=== PATIENT | male | born 1980 | race Caucasian/White ===

== ENCOUNTER 2021-04-06 17:31 | Observation (INO) ==
--- NOTE | 2021-04-06 17:59 | DR.ABDMALE ---
HPI Time seen Time Seen by Provider: 04/06/21 17:59 PCP Primary Care Physician: HAILEE HPI comment HPI Comment: PATIENT IS 40YR OLD MALE IN ER WITH WITH ABDOMINA PAIN AND CHEST PAIN SINCE LAST NIGHT. PAIN ASSOCIATED WITH NAUSEA AND VOMITING AND CHILLS. UR INE IS CONCENTRATED. NO DYSURIA OR DIARRHEA. CHEST PAIN IS IN PRECAUDIAL AREA. HAD PREVIOUS [place]. HAVE FELT SIMILAR PAIN WITH GALL BLADDEER ATTACK. NO COUGH OR CONGESTION. Complaint Chief Complaint Doctors Comments: ABDOMINAL PAIN, CHEST PAIN SINCE LAST NIGHT. Chief Complaint:: PATIENT C/O ABD PAIN, CHEST PAIN, COLD CHILLS, NAUSEA, VOMITTING, AND DARK URINE. PATIENT STATES ALL OF HIS SYMPTOMS STARTED LAST NIGHT AROUND 2330. COVID-19 Coronavirus risk:travel/contact w/high risk person: No Has patient experienced Coronavirus symptoms: Yes Coronavirus symptoms experienced: Fever Reviewed Nurses Notes Review: Yes Mode of arrival Mode of Arrival: Ambulatory Timing Onset of Chief Complaint: 04/05/21 Came on: Suddenly Duration Duration: Constant Duration: Hours Location Location: RUQ, LUQ and Epigastric Severity Severity: Moderate Quality Quality: Sharp Context Onset: Suddenly and At Rest History of: Similar pain (dx) Modifying factors Worsening Factors: Exertion Improving Factors: Lying Still Associated signs and symptoms Associated Signs and Symptoms: Nausea and Vomiting PMH PMH Past Medical History: Yes Past Medical History: [place] Past Surgical History: Yes Surgical History: Ortho Surgery Family History History of Family Medical Conditions: Yes Family Medical History: Diabetes Mellitus, Cancer, [place], Coronary Artery Disease, Heart Failure and Hypertension Social History Does patient currently use any type of tobacco product: Yes Have you used tobacco products in the last 12 months: Yes Type of Tobacco Use: Cigarettes Does any household member use tobacco: Yes Alcohol Use: Rarely Do you use any recreational Drugs:: No Lives With: Family Lives Where: Home Travel Risk Coronavirus risk:travel/contact w/high risk person: No Has patient experienced Coronavirus symptoms: Yes Coronavirus symptoms experienced: Fever Infectious screening In the last 2 months have you had wt loss of >10#?: NO Have you had fever, night sweats or hemotysis?: No Have you traveled outside the country in the last 6 months?: No Isolation: Standard ROS Review of Systems Constitutional: See HPI, Weakness and Fatigue; negative Fever Eyes: No Symptoms Reported and See HPI ENTM: No Symptoms Reported and See HPI; negative Nose Discharge and Loose Teeth Respiratoy: No Symptoms Reported and See HPI; negative Moist Cough, Short of Breath and Wheezing Cardiovascular: No Symptoms Reported, See HPI and Chest Pain; negative Edema, Palpitations and Syncope Gastrointestinal/Abdominal: See HPI, Abdominal Pain, Nausea and Vomiting; negative Diarrhea Genitourinary: No Symptoms Reported and See HPI; negative Dysuria, Frequency and Hematuria Neurological: See HPI and Weakness; negative Headache and Dizziness Musculoskeletal: No Symptoms Reported and See HPI; negative Back Pain and Muscle Pain Integumentary: No Symptoms Reported and See HPI; negative Rash and Juandice Hematologic/Lymphatic: No Symptoms Reported and See HPI; negative Easy Bruising Endocrine: No Symptoms Reported and See HPI; negative Increased Thirst and Increased Urine Psychiatric: No Symptoms Reported and See HPI All Other Systems: Reviewed and Negative PE Vital Signs Vital Signs: Temp Pulse Resp BP BP Pulse Ox 04/06/21 17:32 98.4 F 92 H 20 118/74 97 01/14/21 21:50 126/72 General Limitations: No Limitations General Appearance: Alert and In No Apparent Distress Head Head Exam: Normal Inspection Eyes Eye exam: Normal Appearance; negative Scleral Icterus and Conjunctival Injection ENT ENT Exam: Normal Exam, Normal Oropharynx, Normal External Ear Exam and TM's Normal Bilaterally Neck Neck Exam: Normal Inspection and Trachea Midline; negative Tenderness Chest Chest Inspection: Normal Inspection and Symmetric Chest Wall Rise; negative Ten derness Respiratory Respiratory Exam: Normal Lung Sounds Bilat; negative Accessory Muscle Use, Chest Wall Tenderness and Respiratory Distress Respiratory Exam: Bilateral: Clear to Auscultation Cardiovascular Cardiovascular Exam: Regular Rate, Normal Rhythm and Normal Heart Sounds; negative Systolic Murmur and Diastolic Murmur Abdominal Exam Abdominal Exam: Normal Bowel Sounds, Soft and Tenderness Abdominal Tenderness: RUQ, LUQ, Epigastrium and Moderate Rectal Rectal Exam: Deferred Back Back Exam: Normal Inspection; negative (R) CVA Tenderness and (L) CVA Tenderness Extremeties Extremities Exam: Normal Inspection and Normal Capillary Refill; negative Tenderness Exam: Male: Deferred Neurologic Neurological Exam: Alert, Oriented X3 and CN II-XII Intact; negative Motor Sensory Deficit Psychiatric Psychiatric Exam: Normal Affect and Normal Mood Skin Skin Exam: Warm, Dry, Intact and Normal Color MDM Additional Information Obtained From Additional information provided by: Old Records (SENT FOR CT ABD AND PELVIS FROM [facility]) Differential Diagnosis Differential Diagnosis: Cholcystitis and Cholelethiasis Other differential diagnosis: CHEST PAIN. COURSE Treatment Treatment: SEE ORDERS. Consultation Consultation Comments: DISCUSSED PATIENT WITH DR. DUMONT. HE WILL ADMIT PATIENT. Education/Counseling Education/Counseling: Patient Educated On: Diagnosis ROR Labs Reviewed Laboratory Results Reviewed?: Yes Result Diagrams: 04/06/21 18:20 04/06/21 18:20 Laboratory: WBC 11.6 X10^3/uL (3.6-10.0) H 04/06/21 18:20 RBC 4.46 X10^6/uL (4.7-6.0) L 04/06/21 18:20 Hgb 14.6 g/dL (13.5-18.0) 04/06/21 18:20 Hct 41.9 % (42.0-54.0) L 04/06/21 18:20 MCV 94.0 fL (80.0-100.0) 04/06/21 18:20 MCH 32.8 pg (27.0-34.0) 04/06/21 18:20 MCHC 34.9 g/dL (33.0-35.0) 04/06/21 18:20 RDW 13.0 % (11.6-16.5) 04/06/21 18:20 Plt Count 283 X10^3/uL (150.0-450.0) 04/06/21 18:20 MPV 7.8 fL (7.4-11.0) 04/06/21 18:20 Neut % (Auto) 57.3 % (42.0-75.0) 04/06/21 18:20 Lymph % (Auto) 27.8 % (21.0-51.0) 04/06/21 18:20 Door % (Auto) 11.8 % (0.0-13.0) 04/06/21 18:20 Eos % (Auto) 2.5 % (0.9-2.9) 04/06/21 18:20 Baso % (Auto) 0.6 % (0.2-1.0) 04/06/21 18:20 Neut # (Auto) 6.7 x10^3/uL (2.2-4.8) H 04/06/21 18:20 Lymph # (Auto) 3.2 X10^3/uL (1.3-2.9) H 04/06/21 18:20 Door # (Auto) 1.4 x10^3/uL (0.3-0.8) H 04/06/21 18:20 Eos # (Auto) 0.3 x10^3/uL (0.0-0.2) H 04/06/21 18:20 Baso # (Auto) 0.1 X10^3/uL (0.0-0.1) 04/06/21 18:20 Absolute Nucleated RBC 0.2 /100WBC 04/06/21 18:20 Sodium 140 mmol/L (136-145) 04/06/21 18:20 Corrected Sodium TNP 04/06/21 18:20 Potassium 4.0 mmol/L (3.5-5.1) 04/06/21 18:20 Chloride 104 mmol/L (98-107) 04/06/21 18:20 Carbon Dioxide 28.9 mmol/L (21-32) 04/06/21 18:20 BUN 9 mg/dL (7-18) 04/06/21 18:20 Creatinine 0.72 mg/dL (0.70-1.30) 04/06/21 18:20 Est GFR (MDRD) Af Amer > 60 (>60) 04/06/21 18:20 Est GFR (MDRD) Non-Af > 60 (>60) 04/06/21 18:20 Glucose 110 mg/dL (65-99) H 04/06/21 18:20 Calcium 8.7 mg/dL (8.5-10.1) 04/06/21 18:20 Corrected Calcium TNP 04/06/21 18:20 Total Bilirubin 0.30 mg/dL (0.2-1.0) 04/06/21 18:20 AST 10 Units/L (15-37) L 04/06/21 18:20 ALT 23 Units/L (12-78) 04/06/21 18:20 Alkaline Phosphatase 85 Units/L (46-116) 04/06/21 18:20 Creatine Kinase 90 Units/L (39-308) 04/06/21 18:20 CK-MB (CK-2) < 1.0 ng/mL (0-4.0) 04/06/21 18:20 CK/CKMB % Calc 1.1 % (<4) 04/06/21 18:20 Troponin I < 0.02 ng/mL (0-1.5) 04/06/21 18:20 Total Protein 7.1 g/dL (6.4-8.2) 04/06/21 18:20 Albumin 3.9 g/dL (3.4-5.0) 04/06/21 18:20 Globulin 3.2 g/dL (2.5-4.5) 04/06/21 18:20 Albumin/Globulin Ratio 1.2 Ratio (1.1-2.1) 04/06/21 18:20 Amylase 57 Units/L (25-115) 04/06/21 18:20 Lipase 79 Units/L (73-393) 04/06/21 18:20 Specimen Type Clean catch urine 04/06/21 18:17 Urine Color Yellow (YELLOW) 04/06/21 18:17 Urine Appearance Clear (CLEAR) 04/06/21 18:17 Urine pH 6.5 (5.0 - 8.0) 04/06/21 18:17 Ur Specific [place] 1.005 (1.000-1.030) 04/06/21 18:17 Urine Protein Negative (NEGATIVE) 04/06/21 18:17 Urine Glucose (UA) Negative (NEGATIVE) 04/06/21 18:17 Urine Ketones Negative (NEGATIVE) 04/06/21 18:17 Urine Occult Blood 2+ (NEGATIVE) 04/06/21 18:17 Urine Nitrite Negative (NEGATIVE) 04/06/21 18:17 Urine Bilirubin Negative (NEGATIVE) 04/06/21 18:17 Urine Urobilinogen Normal (NORMAL) 04/06/21 18:17 Ur Leukocyte Esterase Negative (NEGATIVE) 04/06/21 18:17 Urine RBC 5-10 /HPF (0-3) A 04/06/21 18:17 Urine WBC 0-2 /HPF (0-5) 04/06/21 18:17 Ur Squamous Epith Cells Rare /HPF (NEGATIVE) 04/06/21 18:17 Urine Bacteria Trace /HPF (NEGATIVE) 04/06/21 18:17 Ur Culture Indicated? No/not indicated 04/06/21 18:17 SARS-CoV-2 (PCR) Negative (NEGATIVE) 04/06/21 19:52 Influenza Type A (PCR) Negative (NEGATIVE) 04/06/21 19:52 Influenza Type B (PCR) Negative (NEGATIVE) 04/06/21 19:52 RSV (PCR) Negative (NEGATIVE) 04/06/21 19:52 Other Results Comments: CT ABD/PELVIS DONE IN [facility] REVIEWED. GALL STONES REPORTED. XRAY XRAY Interpreted by: Radiologist (REPORT NOTED AND DISCUSSED WITH PATIENT.) and Self EKG Rate: 79 [place]: Normal Rhythm: NSR Block: None Hypertrophy: None ST: Nonsp Opioid Opioid Risk Tool Age (Yunier box if 16-45): Yes History of Preadolescent Sexual Abuse: No Total: 1 Total Score Risk Category: Low Risk Copyright: Ab ALBARRAN predicting aberrant behaviors Diagnosis Discharge Problem: Abdominal pain Qualifiers: Abdominal location: upper abdomen, unspecified Qualified Code(s): R10.10 - Upper abdominal pain, unspecified Cholelithiasis Qualifiers: Cholelithiasis location: gallbladder Cholecystitis presence: without cholecystitis Biliary obstruction: with biliary obstruction Qualified Code(s): K80.21 - Calculus of gallbladder without cholecystitis with obstruction Chest pain Qualifiers: Chest pain type: precordial pain Qualified Code(s): R07.2 - Precordial pain Instructions Forms: Precautions for COVID19 [facility] Social Distancing
[2021-04-06 18:31] LABS: BILIRUBIN,URINE NEGATIVE (NEGATIVE); BLOOD/HEMOGLOBIN,URINE 2+ (NEGATIVE); GLUCOSE, URINE NEGATIVE (NEGATIVE); KETONES,URINE NEGATIVE (NEGATIVE); LEUKOCYTE ESTERASE ,URINE NEGATIVE (NEGATIVE); NITRITES,URINE NEGATIVE (NEGATIVE); PH,URINE 6.5 (5.0 - 8.0); PROTEIN,URINE NEGATIVE (NEGATIVE); UROBILINOGEN,URINE NORMAL (NORMAL)
[2021-04-06 18:31] LABS: BASOPHILS # (AUTO) 0.1 X10^3/uL (0.0-0.1); BASOPHILS % (AUTO) 0.6 % (0.2-1.0); EOSINOPHILS # (AUTO) 0.3 x10^3/uL (0.0-0.2); EOSINOPHILS % (AUTO) 2.5 % (0.9-2.9); HEMATOCRIT 41.9 % (42.0-54.0); HEMOGLOBIN 14.6 g/dL (13.5-18.0); LYMPHOCYTES # (AUTO) 3.2 X10^3/uL (1.3-2.9); LYMPHOCYTES % (AUTO) 27.8 % (21.0-51.0); MEAN CORPUSCULAR HEMOGLOBIN 32.8 pg (27.0-34.0); MEAN CORPUSCULAR HGB CONC 34.9 g/dL (33.0-35.0); MEAN PLATELET VOLUME 7.8 fL (7.4-11.0); MONOCYTES # (AUTO) 1.4 x10^3/uL (0.3-0.8); MONOCYTES % (AUTO) 11.8 % (0.0-13.0); NEUTROPHILS # (AUTO) 6.7 x10^3/uL (2.2-4.8); NEUTROPHILS % (AUTO) 57.3 % (42.0-75.0); PLATELET COUNT 283 X10^3/uL (150.0-450.0); RED BLOOD COUNT 4.46 X10^6/uL (4.7-6.0); WHITE BLOOD COUNT 11.6 X10^3/uL (3.6-10.0)
--- NOTE | 2021-04-06 18:49 | RAD ---
HISTORYABDOMINAL PAIN Relevant Clinical InformationSTUDYACUTE ABDOMEN SERIESCOMPARISONNoneFINDINGSThe trachea is midline. The cardiac silhouette is [unremarkable]. [The lungs are clear without focal mass or consolidation. There is no effusion or pneumothorax.] [The bony thorax is unremarkable].Flat plate and upright evaluation of the abdomen demonstrates a [normal bowel gas pattern]. There moderate amount. There is no pneumoperitoneum. No pathological soft tissue mass or calcification can be observed. The bony structures are grossly intact.IMPRESSION1. [No acute cardiopulmonary disease.]2. [No evidence for acute abdominal pathology identified.] There is a moderate amount of stool the colon.Electronically signed by: CHLOÉ CEDEÑO (Apr 06, 2021 18:47:41)
[2021-04-06 18:51] LABS: ALANINE AMINOTRANSFERASE 23 Units/L (12-78); ALBUMIN 3.9 g/dL (3.4-5.0); ALKALINE PHOSPHATASE 85 Units/L (46-116); AMYLASE 57 Units/L (25-115); ASPARTATE AMINO TRANSFERASE 10 Units/L (15-37); BLOOD UREA NITROGEN 9 mg/dL (7-18); CALCIUM 8.7 mg/dL (8.5-10.1); CARBON DIOXIDE 28.9 mmol/L (21-32); CHLORIDE 104 mmol/L (98-107); CKMB % 1.1 % (<4); CREATINE KINASE 90 Units/L (39-308); CREATINE KINASE MB < 1.0 ng/mL (0-4.0); CREATININE 0.72 mg/dL (0.70-1.30); LIPASE 79 Units/L (73-393); SODIUM 140 mmol/L (136-145); TOTAL PROTEIN 7.1 g/dL (6.4-8.2); TROPONIN I < 0.02 ng/mL (0-1.5); eGFR NON BLACK RACES > 60 (>60)
[2021-04-06 20:05] LABS: APPEARANCE,URINE CLEAR (CLEAR); COLOR,URINE YELLOW (YELLOW)
[2021-04-06 20:06] LABS: BACTERIA,URINE TRACE /HPF (NEGATIVE); SQUAMOUS EPITHELIAL CELL,UR RARE /HPF (NEGATIVE)
[2021-04-06] MEDS ORDERED: ZOFRAN INJ 4 MG VIAL IVP PRN (20:38)
[2021-04-06] MEDS ORDERED: MORPHINE SULFATE INJ 2 MG INJ IVP PRN (20:38)
[2021-04-06] MEDS ORDERED: PEPCID 20 MG IV PREMIX* 20 MG/50 ML BAG IV PRN (20:38)
[2021-04-06] MEDS: NS 1,000 ML IV 1,000 ML IV SCH (21:20)
[2021-04-06 22:06] LABS: CKMB % 1.2 % (<4); CREATINE KINASE 85 Units/L (39-308); CREATINE KINASE MB < 1.0 ng/mL (0-4.0); TROPONIN I < 0.02 ng/mL (0-1.5)
[2021-04-06 22:11] VITALS: BMI 19.5
[2021-04-06] MEDS: NICOTINE PATCH TD SCH (23:05)
[2021-04-07 03:42] LABS: BASOPHILS # (AUTO) 0.1 X10^3/uL (0.0-0.1); BASOPHILS % (AUTO) 0.7 % (0.2-1.0); EOSINOPHILS # (AUTO) 0.3 x10^3/uL (0.0-0.2); EOSINOPHILS % (AUTO) 2.4 % (0.9-2.9); HEMATOCRIT 39.9 % (42.0-54.0); LYMPHOCYTES # (AUTO) 2.9 X10^3/uL (1.3-2.9); LYMPHOCYTES % (AUTO) 25.5 % (21.0-51.0); MEAN CORPUSCULAR HEMOGLOBIN 32.5 pg (27.0-34.0); MEAN CORPUSCULAR VOLUME 92.6 fL (80.0-100.0); MEAN PLATELET VOLUME 7.9 fL (7.4-11.0); MONOCYTES # (AUTO) 1.1 x10^3/uL (0.3-0.8); MONOCYTES % (AUTO) 9.7 % (0.0-13.0); NEUTROPHILS # (AUTO) 6.9 x10^3/uL (2.2-4.8); NEUTROPHILS % (AUTO) 61.7 % (42.0-75.0); PLATELET COUNT 287 X10^3/uL (150.0-450.0); RED BLOOD COUNT 4.31 X10^6/uL (4.7-6.0); WHITE BLOOD COUNT 11.2 X10^3/uL (3.6-10.0)
[2021-04-07 04:03] LABS: ALANINE AMINOTRANSFERASE 19 Units/L (12-78); ALBUMIN 3.5 g/dL (3.4-5.0); ALKALINE PHOSPHATASE 74 Units/L (46-116); ASPARTATE AMINO TRANSFERASE 10 Units/L (15-37); BLOOD UREA NITROGEN 10 mg/dL (7-18); CALCIUM 8.6 mg/dL (8.5-10.1); CARBON DIOXIDE 28.1 mmol/L (21-32); CHLORIDE 104 mmol/L (98-107); CKMB % 1.5 % (<4); CREATINE KINASE 69 Units/L (39-308); CREATINE KINASE MB < 1.0 ng/mL (0-4.0); CREATININE 0.75 mg/dL (0.70-1.30); SODIUM 140 mmol/L (136-145); TOTAL PROTEIN 6.5 g/dL (6.4-8.2); TROPONIN I < 0.02 ng/mL (0-1.5); eGFR NON BLACK RACES > 60 (>60)
[2021-04-07] MEDS ORDERED: BENADRYL INJ 50 MG VIAL IVP PRN (07:33)
[2021-04-07] MEDS ORDERED: BARHEMSYS INJ IVP PRN (07:33)
[2021-04-07] MEDS ORDERED: ZOFRAN INJ 4 MG VIAL IVP PRN (07:33)
[2021-04-07] MEDS ORDERED: PHENERGAN INJ 25 MG IM PRN (07:33)
[2021-04-07] MEDS ORDERED: REGLAN INJ 10 MG VIAL IVP PRN (07:33)
[2021-04-07] MEDS ORDERED: NS 100 ML IV 100 ML ONE (07:51)
[2021-04-07] MEDS ORDERED: LR 1,000 ML IV 1,000 ML IV ONE (07:51)
[2021-04-07] MEDS ORDERED: ANCEF VIAL 1 GRAM ONE (07:51)
[2021-04-07] MEDS ORDERED: BRIDION ONE (08:44)
[2021-04-07] MEDS ORDERED: FENTANYL VIAL INJ 250 mcg ONE (08:44)
[2021-04-07] MEDS ORDERED: DIPRIVAN VIAL ONE (08:50)
[2021-04-07] MEDS ORDERED: VERSED ONE (08:50)
[2021-04-07] MEDS ORDERED: QUELICIN (OR ANECTINE) ONE (08:50)
[2021-04-07] MEDS ORDERED: ZOFRAN INJ 4 MG VIAL ONE (08:50)
[2021-04-07] MEDS ORDERED: TORADOL 30 MG VIAL ONE (08:50)
[2021-04-07] MEDS ORDERED: SUPRANE ONE (08:50)
[2021-04-07] MEDS ORDERED: NORCURON INJ 10 MG VIAL ONE (08:50)
[2021-04-07] MEDS ORDERED: BACTROBAN TOPICAL OINT ONE (09:42)
[2021-04-07] MEDS ORDERED: DILAUDID INJ ONE (09:43)
[2021-04-07] MEDS: DILAUDID INJ IVP PRN ×3 (10:31→10:51)
[2021-04-07] MEDS ORDERED: BARHEMSYS INJ ONE (10:42)
[2021-04-07] MEDS ORDERED: D5 1/2 NS 1,000 ML 1,000 ML IV ONE (11:03)
[2021-04-07] MEDS ORDERED: DILAUDID INJ IVP PRN (11:10)
[2021-04-07] MEDS: NICOTINE PATCH TD SCH (11:12)
[2021-04-07] MEDS: NS 1,000 ML IV 1,000 ML IV SCH (11:15)
[2021-04-07 11:57] LABS: CKMB % 1.2 % (<4); CREATINE KINASE 81 Units/L (39-308); CREATINE KINASE MB < 1.0 ng/mL (0-4.0); TROPONIN I < 0.02 ng/mL (0-1.5)
[2021-04-07] MEDS ORDERED: D5 1/2 NS 1,000 ML 1,000 ML IV SCH (12:00)
[2021-04-07] MEDS ORDERED: LEVAQUIN PREMIX IV 500 MG 500 MG/100 ML BAG IV SCH (12:00)
[2021-04-07] MEDS ORDERED: NORCO 5/325 MG TAB PO ONE (15:21)
[2021-04-07 15:25] VITALS: BP 156/91
== END 2021-04-07 15:45 | disposition home or self-care (01) ==
LOC: ER 17:31 → MED/SURG 17:31
PROVIDERS: ADMIT Surgery; ATTEND Surgery
DX: R10.10 Upper abdominal pain, unspecified; Z20.822 Contact with and (suspected) exposure to COVID-19; K80.00 Calculus of gallbladder with acute cholecystitis without obstruction; R07.2 Precordial pain; Z66 Do not resuscitate